=== PATIENT | male | born 1965 | race Caucasian/White ===

== ENCOUNTER → 2023-09-09 13:18 | Outpatient (BNVA) | payer OTHER, SELFPAY | PROVIDERS: Family Provider Family Medicine; PCP Nurse Practitioner Family; Visit Provider Registered Nurse | DX: R10.9 Unspecified abdominal pain (principal); N20.0 Calculus of kidney; I10 Essential (primary) hypertension | CPT/HCPCS: 81000 ==

== ENCOUNTER → 2024-01-26 11:49 | Outpatient (BNVA) | payer OTHER, SELFPAY | PROVIDERS: Family Provider Family Medicine; PCP Nurse Practitioner Family; Visit Provider Registered Nurse | DX: I10 Essential (primary) hypertension (principal); R63.4 Abnormal weight loss; E11.9 Type 2 diabetes mellitus without complications | CPT/HCPCS: 80053; 81000; 83036; 85025 ==

== ENCOUNTER → 2024-02-13 10:19 | Outpatient (BNVA) | payer OTHER, SELFPAY | PROVIDERS: Family Provider Family Medicine; PCP Registered Nurse; Visit Provider Registered Nurse | DX: I10 Essential (primary) hypertension (principal); Z09 Encounter for follow-up examination after completed treatment for conditions other than malignant neoplasm; Z53.20 Procedure and treatment not carried out because of patient's decision for unspecified reasons; K57.92 Diverticulitis of intestine, part unspecified, without perforation or abscess without bleeding | CPT/HCPCS: 80048; 85025 ==

== ENCOUNTER 2024-11-07 09:38 | Outpatient (CLI) | payer OTHER, SELFPAY ==
--- NOTE | 2024-11-07 10:30 | CT_ITS ---
WS: [id number] CT ABDOMEN AND PELVIS NONCONTRAST HISTORY: N20.0 - Calculus of kidney TECHNIQUE: Imaging performed through the abdomen and pelvis. Coronal and sagittal reformats are submi tted. All CT scans at [facility] use at least one of these dose optimization techniques: auto mated exposure control; mA and/or kV adjustment per patient size (includes targeted exams where dose is matched to clinical indication); or iterative reconstruction. DLP: 771.60 mGy.cm COMPARISON: None available. Lower thorax: Lung bases are clear. Visualized heart is normal. Small hiatal hernia. Liver: Normal size liver. No mass or bile duct dilatation. Gallbladder: Normal gallbladder. No pericholecystic fluid or cholelithiasis. No gallbladder wall thic [place]. Pancreas: Normal size and attenuation. Normal pancreatic duct. No pancreatitis or mass. Spleen: Normal. Adrenal glands: Normal. No mass. Right kidney: Normal size kidney. Nonobstructing 5 mm calcification in the central renal pelvis. No u reteral calcification. Left kidney: Nonobstructing 7 mm calcification in the lower pole. No hydronephrosis. No ureteral calc ification. Aorta: Normal abdominal aorta, no aneurysm or atherosclerosis. No free fluid, intraperitoneal air or significant lymphadenopathy. GI tract: Stomach is not distended. No small bowel obstruction. Adjacent to a small bowel loop in the LEFT upper abdomen is an area of fat necrosis. Normal appendix. Rectosigmoid anastomosis is identifi ed. At the site of the anastomosis is a lobulated low-attenuation mass measuring 2.3 x 3.8 cm which c annot be further evaluated on this exam. There is no adjacent inflammation. This may be part of the p ostoperative field. Abdominal wall: Small umbilical hernia contains fat only. Pelvis: Urinary bladder is markedly distended extending over a length of 14 cm. Consider partial out let obstruction as the prostate gland is slightly enlarged. Patent LEFT inguinal canal contains fat. Osseous structures: Vertebral body hemangiomas at L2 and T11. CT/CT kidney stone [id number] IMPRESSION: 1. No hydronephrosis or renal calcifications. 2. Nonobstructing bilateral renal calcifications. 3. Rectosigmoid anastomosis appears intact. There is a lobulated cystic mass a ssociated with the anastomosis measuring 2.3 x 3.8 cm. There are no prior studi es to document stability or if this is a new mass. This can be further evaluate d by colonoscopy. 4. Distended urinary bladder. Correlate for possible outlet obstruction. Prost ate gland enlargement. 5. Small hiatal hernia.
--- NOTE | 2024-11-07 13:13 | XR_ITS ---
WS: [id number] XR thoracic spine 3V* [id number] REASON FOR EXAM: M54.6 - Pain in thoracic spine FINDINGS: No significant kyphosis or scoliosis. No compression deformity or focal vertebral body lesion. Moderate degenerative spondylosis in the mid and lower thoracic spine with disc space narrowing, endp late sclerosis, and osteophytosis. XR/XR thoracic spine 3V* [id number] IMPRESSION: Degenerative spondylosis of the thoracic spine.
[2024-11-07 13:23] LABS: Basophils # 0.1 10^3/uL (0.0-0.1); Eosinophils # 0.2 10^3/uL (0.0-0.8); Eosinophils % 3.1 %; Hematocrit 43.1 % (37-53); Lymphocytes # 1.8 10^3/uL (0.8-4.8); Lymphocytes % 26.6 %; Mean Corpuscular HGB Conc 32.9 g/dL (30-55); Mean Corpuscular Hemoglobin 32.9 pg (27-33); Mean Platelet Volume 9.8 fL (7.4-10.4); Monocytes # 0.5 10^3/uL (0.2-0.9); Monocytes % 7.9 %; Neutrophils # 4.17 10^3/uL (1.8-7.7); Neutrophils % 61.3 %; Nucleated Red Blood Cells % 0 %; Platelet Count 209 10^3/cmm (157-399); Red Blood Count 4.31 10^6/uL (3.85-5.65); Red Cell Distribution Width 11.6 % (12.1-15.1); White Blood Count 6.81 10^3/uL (3.29-11.43)
[2024-11-07 13:24] LABS: Erythrocyte Sedimentation Rate 1 mm/hr (0-10)
[2024-11-07 13:51] LABS: Alanine Aminotransferase 38 U/L (0-41); Albumin Level 4.7 g/dL (3.5-5.2); Alkaline Phosphatase 135 U/L (40-130); Anion Gap 15.2 (5-19); Aspartate Amino Transferase 26 U/L (0-40); Blood Urea Nitrogen 13 mg/dL (6-20); CRP High Sensitivity Cardiac < 0.150 mg/dL (0.0-0.3); Calcium 9.1 mg/dL (8.5-10.5); Carbon Dioxide 25 mmol/L (22-29); Chloride 101 mmol/L (98-107); Glomerular Filtration Rate 99.3 mL/min (90-130); Glucose 138 mg/dL (65-115); Osmolality Calculated 286 mOsm/kg (285-295); Potassium 4.2 mmol/L (3.5-5.1); Prostate Specific Antigen 0.974 ng/mL (0-4); Sodium 137 mmol/L (136-145); Total Bilirubin 0.4 mg/dL (0.15-1.2); Total Protein 7.7 g/dL (6.6-8.7)
== END 2024-11-07 09:39 | disposition home or self-care (01) ==
PROVIDERS: Family Provider Family Medicine; PCP Registered Nurse; Visit Provider Registered Nurse
DX: N20.0 Calculus of kidney (principal); Z87.19 Personal history of other diseases of the digestive system; N40.0 Benign prostatic hyperplasia without lower urinary tract symptoms; R10.9 Unspecified abdominal pain; M54.6 Pain in thoracic spine; M47.894 Other spondylosis, thoracic region; M25.78 Osteophyte, vertebrae; M48.04 Spinal stenosis, thoracic region; G95.89 Other specified diseases of spinal cord
CPT/HCPCS: 36415; 72072; 74176; 80053; 81000; 84153; 85025; 85651; 86141

== ENCOUNTER → 2025-03-11 13:18 | Outpatient (BNVA) | payer OTHER, SELFPAY | PROVIDERS: PCP Registered Nurse; Visit Provider Registered Nurse | DX: R31.9 Hematuria, unspecified (principal) | CPT/HCPCS: 80053; 81000; 82550; 85025; 87086 ==